=== PATIENT | male | born 1990 | race Hispanic/Latino ===

== ENCOUNTER 2023-01-03 09:45 | Outpatient (CLI) | payer BC | END 2023-01-03 09:46 | disposition home or self-care (01) | LOC: CSHRAD 09:45 | PROVIDERS: ATTEND Student in an Organized Health Care Education/Training Program | DX: M25.562 Pain in left knee (principal); M25.571 Pain in right ankle and joints of right foot ==

== ENCOUNTER 2024-02-09 16:00 | Outpatient (CLI) | payer BC | END 2024-02-09 16:01 | disposition home or self-care (01) | LOC: CSHSLEEP 16:00 | PROVIDERS: ATTEND Student in an Organized Health Care Education/Training Program | DX: G47.33 Obstructive sleep apnea (adult) (pediatric) (principal); R53.83 Other fatigue; F32.A Depression, unspecified; E66.9 Obesity, unspecified; Z68.41 Body mass index [BMI] 40.0-44.9, adult; R06.83 Snoring; I10 Essential (primary) hypertension | CPT/HCPCS: 95811 ==